=== PATIENT | female | born 1955 | race Caucasian/White ===

== ENCOUNTER 2017-12-27 21:04 | Emergency (ER) | payer OTHER ==
--- NOTE | 2017-12-27 21:57 | EDPHY ---
H & P Stated Complaint: SLIPPED AND FELL HIT CHIN, LAC AND NECK PAIN Time Seen by Provider: 12/27/17 21:57 HPI/ROS: HPI CHIEF COMPLAINT: Mechanical trip and fall, chin laceration HISTORY OF PRESENT ILLNESS: Patient is a 62-year-old female she is otherwise healthy denies any significant medical history does not take any daily medications she presents emergency room with a mechanical trip and fall. The patient was entering her house and she tripped on something she fell forward landing on her face on hardwood is. She sustained a midline chin laceration. She does complain also of a headache as well as neck pain as well as chin pain. No problem with her dentition. Denies any malocclusion or trouble with her bite. Denies focal numbness or tingling or weakness. Past Medical History: Denies significant medical history Past Surgical History: No significant surgical history Social History: Denies drugs alcohol tobacco. Family History: Noncontributory ROS REVIEW OF SYSTEMS: A comprehensive 10 point review of systems is otherwise negative aside from elements mentioned in the history of present illness. Exam Constitutional triage nursing summary reviewed, vital signs reviewed, awake/ alert. Eyes normal conjunctivae and sclera, EOMI, PERRLA. HENT head/neck: Patient is in a soft cervical collar placed by triage, she has an obvious chin hematoma midline chin as well as a laceration horizontally oriented 3 cm in length across the bottom of her chin where she struck the ground, no malocclusion, midface stable, does complain of a left frontal headache, otherwise atraumatic head and neck exam, no epistaxis, neck supple/ no meningismus, no raccoon eyes. Respiratory clear to auscultation bilaterally, normal breath sounds, no respiratory distress, no wheezing. Cardiovascular rate normal, regular rhythm, no murmur, no edema, distal pulses normal. Gastrointestinal soft, non-tender, no rebound, no guarding, normal bowel sounds, no distension, no pulsatile mass. Genitourinary no CVA tenderness. Musculoskeletal no midline vertebral tenderness, full range of motion, no calf swelling, no tenderness of extremities, no meningismus, good pulses, neurovascularly intact. Skin pink, warm, & dry, no rash, skin atraumatic. Neurologic awake, alert and oriented x 3, AAOx3, moves all 4 extremities equally, motor intact, sensory intact, CN II-XII intact, normal cerebellar, normal vision, normal speech. Psychiatric normal mood/affect. Heme/Lymph/Immune no lymphadenopathy. Differential Diagnosis: Includes but is not limited to in a particular order mechanical trip and fall, closed head injury, intracranial bleed, subdural, traumatic subarachnoid, mandibular fracture, chin laceration, soft tissue injury , hematoma Medical Decision Making: Plan for this patient she will have a CT scan head, cervical spine, and maxillofacial without contrast for trauma protocol. Her tetanus shot will be updated. She will receive 800 mg Motrin for pain control. And her laceration will need to be repaired. Re-evaluation: Laceration Repair Procedure: Verbal Consent was obtained, Under sterile conditions, The patient had lidocaine with epinephrine used approximately 4ccs to local anesthetize the Midline Chin horizontal 3cm Laceration. The wound was copiously irrigated with sterile fluid, the wound was explored for foreign bodies there were none visualized, the wound was explored with a sterile glove to the base. There are no deep structures involved, including no arterial injury. THREE 6.O PROLENE interrupted Sutures were placed in this patient's laceration. He had good close approximation of the wound edges. He Tolerated this well. CT scan head without contrast, CT scar focal spine without contrast, CT maxillofacial without contrast for trauma: Negative for acute traumatic injury called to me by Dr. Gunter Patient understands to have her sutures removed in 7 days. Addition to stands return emergency room if there is worsening symptoms questions or concerns. She tolerated laceration repair very well. Keep the wound clean, dry intact protected. Source: Patient - Personal History Current Tetanus/Diphtheria Vaccine: No Current Tetanus Diphtheria and Acellular Pertussis (TDAP): No - Medical/Surgical History Hx Asthma: No Hx Chronic Respiratory Disease: No Hx Diabetes: No Hx Cardiac Disease: No Hx Renal Disease: No Hx Cirrhosis: No Hx Alcoholism: No Hx HIV/AIDS: No Hx Splenectomy or Spleen Trauma: No Other PMH: colonoscopy complications/perforation=septic - Social History Smoking Status: Never smoked Constitutional: Initial Vital Signs Temperature (C) 36.6 C 12/27/17 21:17 Heart Rate 81 12/27/17 21:17 Respiratory Rate 18 12/27/17 21:17 Blood Pressure 85/61 L 12/27/17 21:17 O2 Sat (%) 98 12/27/17 21:17 O2 Delivery Mode Room Air Allergies/Adverse Reactions: Penicillins Allergy (Verified 12/27/17 21:18) Tetracyclines Allergy (Verified 12/27/17 21:18) Home Medications: Medication Instructions Recorded Ibuprofen [Motrin (*)] 200 mg PO DAILY PRN 06/04/16 Medical Decision Making - Diagnostics Imaging Results: Imaging Impressions Cervical Spine CT 12/27/17 22:01 Impression: 1. No definite fracture. 2. Moderate cervical spondylosis, worse at C5-C6 and C6-C7 resulting in mild to moderate central canal stenosis. 3.If there is persistent pain or neurological deficit, recommend MR cervical spine and consider flexion and extension views, if clinically indicated. Findings and recommendations discussed with Emergency Department physician, Pablo Zelaya MD at 23:01 hour, 12/27/2017. Final report concurs with initial preliminary interpretation. Face CT 12/27/17 22:01 Impression: 1. Moderate bilateral maxillary and ethmoid sinusitis. 2. No mandible fracture. 3. No maxillofacial fracture. Findings and recommendations discussed with Emergency Department physician, Pablo Zelaya MD at 23:00 hour, 12/27/2017. Final report concurs with initial preliminary interpretation. Head CT 12/27/17 22:01 Impression: 1. Normal CT brain without contrast. 2. Moderate bilateral maxillary and ethmoid sinusitis. 3. No skull fracture or hemorrhage. Findings and recommendations discussed with Emergency Department physician, Pablo Zelaya MD at 22:59 hour, 12/27/2017. Final report concurs with initial preliminary interpretation. - Data Points Medications Given: Discontinued Medications Diphtheria/Tetanus/Acell Pertussis (Boostrix) 0.5 ml IM .ONCE ONE Stop: 12/27/17 22:02 Last Admin: 12/27/17 22:06 Dose: 0.5 ml Ibuprofen (Motrin) 800 mg PO EDNOW ONE Stop: 12/27/17 22:02 Last Admin: 12/27/17 22:05 Dose: 800 mg Departure - Departure Disposition: Home, Routine, Self-Care Clinical Impression: Hematoma Fall Qualifiers: Encounter type: initial encounter Qualified Code(s): W19.XXXA - Unspecified fall, initial encounter Chin laceration Qualifiers: Encounter type: initial encounter Qualified Code(s): S01.81XA - Laceration without foreign body of other part of head, initial encounter Condition: Good Instructions: Care For Your Stitches (ED), Laceration (ED), Contusion in Adults (ED), Hematoma (ED) Additional Instructions: 1. Your sutures need to be removed in 7 days. 2. Watch for signs of infection however keep her wound clean, dry protected. 3. Ice your chin. 4. Recommend anti-inflammatory pain medicine for pain control. Tylenol Motrin. Referrals: BELKIS JAUREGUI [Primary Care Provider] - As per Instructions
[2017-12-27] MEDS ORDERED: TDAP ADULT 0.5 ML INJ (BOOSTRIX) IM ONE (22:01)
[2017-12-27] MEDS ORDERED: IBUPROFEN 800 MG TAB PO ONE (22:01)
[2017-12-27 23:21] VITALS: BP 119/70
== END 2017-12-27 23:20 | disposition home or self-care (01) ==
PROC: 0HQ1XZZ Repair Face Skin, External Approach (ICD-10-PCS; principal; 2017-12-27)
DX: S01.81XA Laceration without foreign body of other part of head, initial encounter (principal); Z23 Encounter for immunization; W01.0XXA Fall on same level from slipping, tripping and stumbling without subsequent striking against object, initial encounter